=== PATIENT | female | born 1940 | race Caucasian/White ===

== ENCOUNTER 2018-05-11 09:29 | Outpatient (CLI) | payer MEDICARE, BC | END 2018-05-11 09:30 | disposition home or self-care (01) | LOC: BICMAMMO 09:29 | PROVIDERS: ATTEND Obstetrics & Gynecology | DX: Z12.31 Encounter for screening mammogram for malignant neoplasm of breast (principal); Z80.3 Family history of malignant neoplasm of breast | CPT/HCPCS: 77063; 77067 ==

== ENCOUNTER 2021-07-12 14:06 | Outpatient (CLI) | payer MEDICARE, BC | END 2021-07-12 14:07 | disposition home or self-care (01) | LOC: BICMAMMO 14:06 | PROVIDERS: ATTEND Internal Medicine | DX: Z13.820 Encounter for screening for osteoporosis (principal); Z78.0 Asymptomatic menopausal state; M85.852 Other specified disorders of bone density and structure, left thigh | CPT/HCPCS: 77063; 77067; 77080 ==

== ENCOUNTER 2022-05-13 14:20 | Outpatient (CLI) | payer MEDICARE, BC | END 2022-05-13 14:21 | disposition home or self-care (01) | LOC: RAD 14:20 | PROVIDERS: ATTEND Anesthesiology Pain Medicine | DX: R05.1 Acute cough (principal) | CPT/HCPCS: 71046 ==